=== PATIENT | male | born 1980 | race American Indian/Alaskan Native ===

== ENCOUNTER 2018-03-25 22:12 | Emergency (ER) | payer MEDICAID ==
[~2018-03-25] VITALS: Ht 165.1 cm; Wt 90.8 kg
[2018-03-25 22:26] VITALS: BP 127/77
--- NOTE | 2018-03-25 22:28 | NUR ---
PT RETURNED TO LOBBY IN STABLE CONDITION
--- NOTE | 2018-03-26 00:22 | NUR ---
PT AMBULATED TO ER BED 03
--- NOTE | 2018-03-26 00:31 | NUR ---
PT BIB FAMILY C/O RT LEG PAIN S/P WORKING OUT X 1 DAYS. PT DENIES N/V/D; SKIN IS INTACT, PINK/WARM/DRY; AAOX4, PERRL, WITH EVEN AND STEADY GAIT-NO LIMP NOTED; LUNGS CLEAR BL, BREATHING UNLABORED; HR EVEN AND REGULAR, BL PERIPHERAL PULSES PRESENT; BS ACTIVE X4, NO TENDERNESS TO PALPATION. PT DENIES ANY FEVER, CP, SOB, OR COUGH AT THIS TIME; PT STATES 9/10 PAIN AT THIS TIME; VSS; PATIENT POSITIONED FOR COMFORT; HOB ELEVATED; BEDRAILS UP X2; BED DOWN. REPORT GIVEN TO TWAN
--- NOTE | 2018-03-26 00:33 | NUR ---
REPORT GIVEN TO TWAN
--- NOTE | 2018-03-26 01:12 | NUR ---
Dr. Chaidez evaluating patient at bedside.
[2018-03-26] MEDS ORDERED: IBUPROFEN 800 MG TAB PO ONE (01:20)
[2018-03-26] MEDS ORDERED: HYDROcodone/APAP 5/325 MG 1 TAB TAB PO ONE (01:20)
[2018-03-26 03:20] VITALS: BP 118/74
--- NOTE | 2018-03-26 03:20 | NUR ---
Patient discharged with v/s stable. Written and verbal after care instructions given and explained. Patient alert, oriented and verbalized understanding of instructions. Ambulatory with steady gait. All questions addressed prior to discharge. ID band removed. Patient advised to follow up with PMD. Rx of IBUPROFEN AND PERCOCET given. Patient educated on indication of medication including possible reaction and side effects. Opportunity to ask questions provided and answered.
== END 2018-03-26 03:20 | disposition home or self-care (01) ==
LOC: MED 22:12
DX: S86.911A Strain of unspecified muscle(s) and tendon(s) at lower leg level, right leg, initial encounter (principal); F17.200 Nicotine dependence, unspecified, uncomplicated; X58.XXXA Exposure to other specified factors, initial encounter; Y93.B1 Activity, exercise machines primarily for muscle strengthening; Y92.89 Other specified places as the place of occurrence of the external cause; Y99.8 Other external cause status
CPT/HCPCS: 93971; 99284; Q0092

== ENCOUNTER 2020-12-31 09:54 | Emergency (ER) | payer MEDICAID ==
[~2020-12-31] VITALS: Ht 165.1 cm; Wt 88.0 kg
[2020-12-31 10:06] VITALS: BP 136/67
--- NOTE | 2020-12-31 10:11 | NUR ---
PT TO WAIT IN LOBBY.
--- NOTE | 2020-12-31 10:13 | NUR ---
40 Y/O MALE C/O LEFT RIB PAIN 10 X1DAY. DENIES TAKING RX PRIOR TO ARRIVAL. PT STATES HE FELL LAST WEEK BUT DID NOT HURT LEFT SIDE. DENIES FEVER/CHILLS. DENIES N/V. DENIES PMH NKA
--- NOTE | 2020-12-31 11:15 | NUR ---
PT AMBULATED TO ER BED 12
[2020-12-31] MEDS ORDERED: LIDOCAINE 5% 1 EA PATCH TP STA (11:39)
[2020-12-31] MEDS ORDERED: ACETAMINOPHEN 325 MG TAB PO ONE (11:40)
--- NOTE | 2020-12-31 12:18 | NUR ---
Patient states no relief from pain, 10/[address] Stein made aware and new orders placed.
[2020-12-31] MEDS ORDERED: KETOROLAC 15 MG/ML VIAL IM STA (12:20)
[2020-12-31] MEDS ORDERED: KETOROLAC 15 MG/ML VIAL ONE (12:21)
--- NOTE | 2020-12-31 13:00 | NUR ---
Pt states + relief to pain; 2/10 at this time.
[2020-12-31 13:31] LABS: BASOPHILS % (AUTO) 0.3 % (0.0-2.0); EOSINOPHILS # (AUTO) 0.1 K/uL (0-0.4); HEMATOCRIT 44.8 % (36-52); HEMOGLOBIN 14.8 g/dL (12.0-18.0); LYMPHOCYTES # (AUTO) 1.3 K/uL (2.0-11.5); LYMPHOCYTES % (AUTO) 14.3 % (20.5-51.1); MEAN CORPUSCULAR HEMOGLOBIN 32 pg (27-31); MEAN CORPUSCULAR HGB CONC 33 g/dL (33-37); MEAN CORPUSCULAR VOLUME 96.6 fL (80-94); MONOCYTES # (AUTO) 0.8 K/uL (0.8-1.0); MONOCYTES % (AUTO) 8.6 % (1.7-9.3); NEUTROPHILS # (AUTO) 6.8 K/uL (1.8-7.7); NEUTROPHILS % (AUTO) 75.8 % (42.2-75.2); PLATELET COUNT (AUTO) 284 K/uL (140-450); RED BLOOD CELL COUNT(AUTO) 4.64 MIL/uL (4.20-6.10); RED CELL DISTRIBUTION WIDTH 13.5 % (11.6-13.7)
[2020-12-31 13:46] LABS: ALBUMIN 3.4 g/dL (3.4-5.0); ANION GAP 16.5 (8-16); CARBON DIOXIDE 22.2 mmol/L (21-32); CREATININE 0.8 mg/dL (0.6-1.3); POTASSIUM 3.7 mmol/L (3.5-5.1); TOTAL BILIRUBIN 0.5 mg/dL (0.0-1.0)
[2020-12-31 14:30] VITALS: BP 122/73
--- NOTE | 2020-12-31 14:55 | NUR ---
Patient discharged with v/s stable. Written and verbal after care instructions given and explained. Patient verbalized understanding. Ambulatory with steady gait. All questions addressed prior to discharge. Advised to follow up with PMD.
== END 2020-12-31 14:55 | disposition home or self-care (01) ==
LOC: MED 09:54
DX: S20.212A Contusion of left front wall of thorax, initial encounter (principal); W01.0XXA Fall on same level from slipping, tripping and stumbling without subsequent striking against object, initial encounter; Y92.89 Other specified places as the place of occurrence of the external cause; Y93.89 Activity, other specified; Y99.8 Other external cause status
CPT/HCPCS: 36415; 71100; 80053; 83690; 85025; 96372; 99284; J1885; Q0092

== ENCOUNTER 2021-02-15 00:43 | Emergency (ER) | payer MEDICAID ==
[~2021-02-15] VITALS: Ht 165.1 cm; Wt 90.7 kg
[2021-02-15 00:49] VITALS: BP 145/100
--- NOTE | 2021-02-15 01:00 | NUR ---
PATIENT BIB SELF FOR C/O RUQ PAIN X 1 DAY. PATIENT STATES PAIN WAS GRADUAL BUT GREW TO 10/10 AND IS NOW CONTINOUS. PATIENT STATES HAS NEW ONSET NAUSEA. PATIENT DENIES EPISODES OF VOMITING AND DIARRHEA. PATIENT NOTED WITH TENDERNESS IN RUQ. PATIENT AND ADMITS TO APPENDECTOMY @ 14 Y/O AND PANCREATITIS. MEDX: KIDNEY STONES, PANCREATITIS, APPENDECTOMY. JCA
--- NOTE | 2021-02-15 01:08 | NUR ---
LUCY ROWLEY AT [facility].
[2021-02-15] MEDS ORDERED: MORPHINE SULFATE 4 MG/ML SYR IVP ONE (01:10)
[2021-02-15] MEDS ORDERED: ONDANSETRON 4 MG/2 ML VIAL IVP ONE (01:10)
[2021-02-15] MEDS ORDERED: KETOROLAC 30 MG/ML VIAL IVP ONE ×2 (01:10→04:55)
[2021-02-15 01:46] LABS: BASOPHILS % (AUTO) 0.4 % (0.0-2.0); EOSINOPHILS # (AUTO) 0.4 K/uL (0-0.4); EOSINOPHILS % (AUTO) 3.5 % (0.0-4.0); HEMATOCRIT 44.4 % (36-52); HEMOGLOBIN 15.2 g/dL (12.0-18.0); LYMPHOCYTES % (AUTO) 10.2 % (20.5-51.1); MEAN CORPUSCULAR HEMOGLOBIN 32 pg (27-31); MEAN CORPUSCULAR HGB CONC 34 g/dL (33-37); MEAN CORPUSCULAR VOLUME 94.6 fL (80-94); MONOCYTES # (AUTO) 0.6 K/uL (0.8-1.0); MONOCYTES % (AUTO) 6.2 % (1.7-9.3); NEUTROPHILS # (AUTO) 8.1 K/uL (1.8-7.7); NEUTROPHILS % (AUTO) 79.7 % (42.2-75.2); PLATELET COUNT (AUTO) 349 K/uL (140-450); RED BLOOD CELL COUNT(AUTO) 4.69 MIL/uL (4.20-6.10); RED CELL DISTRIBUTION WIDTH 13.1 % (11.6-13.7); WHITE BLOOD COUNT (AUTO) 10.2 K/uL (4.8-10.8)
--- NOTE | 2021-02-15 01:48 | NUR ---
PATIENT STATES UNABLE TO PROVIDE URINE SAMPLE AT THIS TIME.
--- NOTE | 2021-02-15 01:49 | NUR ---
US AT BEDSIDE.
[2021-02-15 02:07] LABS: ALBUMIN 3.2 g/dL (3.4-5.0); ANION GAP 14.7 (8-16); CARBON DIOXIDE 26.6 mmol/L (21-32); CREATININE 0.9 mg/dL (0.6-1.3); POTASSIUM 3.3 mmol/L (3.5-5.1); TOTAL BILIRUBIN 0.3 mg/dL (0.0-1.0)
[2021-02-15] MEDS ORDERED: MORPHINE SULFATE 10 MG/ML VIAL IVP ONE (02:50)
[2021-02-15] MEDS ORDERED: NACL 0.9% 1,000 ML IV ONE (02:50)
--- NOTE | 2021-02-15 03:10 | NUR ---
Patient has c/o 8/10 RUQ pain. Patient denies n/v/d. ERMD made aware and gave new orders for pain and IVF. 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
[2021-02-15 03:42] LABS: APPEARANCE,URINE CLEAR (CLEAR); BILIRUBIN,URINE NEGATIVE (NEGATIVE); BLOOD, URINE TRACE-I (NEGATIVE); COLOR,URINE YELLOW (YELLOW); LEUKOCYTE ESTERASE ,URINE NEGATIVE (NEGATIVE); NITRITE, URINE NEGATIVE (NEGATIVE); UGLUCOSE NEGATIVE (NEGATIVE)
[2021-02-15 03:57] LABS: BARBITURATE, URINE NEGATIVE ng/ml (NEG <=200); BENZODIAZEPINE, URINE POSITIVE ng/mL (NEG <=200); CANNABINOID, URINE POSITIVE ng/mL (NEG <=50); COCAINE, URINE NEGATIVE ng/mL (NEG <=300); OPIATE, URINE POSITIVE ng/mL (NEG <=2000); PHENCYCLIDINE SCREEN,URINE NEGATIVE ng/mL (NEG <=25)
[2021-02-15 04:09] LABS: RBC,URINE 0-5 /HPF (0-5); WBC,URINE 0-5 /HPF (0-5)
[2021-02-15] MEDS ORDERED: MAG-27 PO (04:28)
[2021-02-15] MEDS ORDERED: ONDA-188 PO (04:28)
[2021-02-15] MEDS ORDERED: ACET-8386 PO (04:28)
[2021-02-15] MEDS ORDERED: HYDROcodone/APAP 5/325 MG 1 TAB TAB PO ONE (04:55)
--- NOTE | 2021-02-15 05:00 | NUR ---
Patient is currently ambulatory with steady gait, able to walk unassisted. Positive gag reflex. Alert and oriented. Is not driving self for discharge out of facility, per patient," My is coming to pick me up." NADR to Morphine and norco given.
[2021-02-15 05:05] VITALS: BP 114/84
--- NOTE | 2021-02-15 05:05 | NUR ---
Patient discharged with v/s stable. Written and verbal after care instructions given and explained. Patient alert, oriented and verbalized understanding of instructions. Ambulatory with steady gait. All questions addressed prior to discharge. ID band removed. Patient advised to follow up with PMD. Rx of MYLNATA MAXIMUM STRENGTH, NORCO 5-325, ZOFRAN given. Patient educated on indication of medication including possible reaction and side effects. Opportunity to ask questions provided and answered.
--- NOTE | 2021-02-15 05:05 | NUR ---
IV removed, catheter intact and site benign. Applied folded 4x4 gauze and tape to stop bleeding.
== END 2021-02-15 05:05 | disposition home or self-care (01) ==
LOC: MED 00:43
DX: K85.90 Acute pancreatitis without necrosis or infection, unspecified (principal); F17.210 Nicotine dependence, cigarettes, uncomplicated; Z90.49 Acquired absence of other specified parts of digestive tract; Z79.891 Long term (current) use of opiate analgesic; Z79.899 Other long term (current) drug therapy
CPT/HCPCS: 36415; 76705; 80053; 80305; 81001; 83690; 85025; 96374; 96375; 96376; 99285; J1885; J2270; J2405; J7030; Q0092